=== PATIENT | female | born 2000 | race Caucasian/White ===

== ENCOUNTER 2022-11-01 16:15 | Emergency (ER) | payer SELFPAY ==
[~2022-11-01] VITALS: Ht 175.3 cm; Wt 77.3 kg
[2022-11-01] MEDS ORDERED: ONDANSETRON HCL 4 MG/2 ML VIAL IVP ONE (16:30)
[2022-11-01] MEDS ORDERED: KETOROLAC TROMETHAMINE 30 MG/ML VIAL IVP ONE (16:30)
[2022-11-01 16:43] LABS: BASOPHILS % (AUTO) 0.5 % (0.0-2.0); EOSINOPHILS % (AUTO) 2.6 % (1.0-6.0); HEMATOCRIT 38.7 % (36-46); HEMOGLOBIN 12.9 g/dL (12.0-16.0); LYMPHOCYTES % (AUTO) 24.9 % (22.0-44.0); MEAN CORPUSCULAR HEMOGLOBIN 30.9 pg (26.0-34.0); MEAN CORPUSCULAR HGB CONC 33.3 G/dL (31.0-37.0); MEAN CORPUSCULAR VOLUME 93 fL (80-100); MONOCYTES # (AUTO) 0.6 K/uL (0.1-1.0); MONOCYTES % (AUTO) 7.5 % (2.0-9.0); NEUTROPHILS # (AUTO) 5.1 K/uL (1.8-7.7); NEUTROPHILS % (AUTO) 64.5 % (40.0-70.0); PLATELET COUNT (AUTO) 210 K/uL (150-450); RED BLOOD CELL COUNT(AUTO) 4.16 MIL/uL (4.00-5.20); RED CELL DISTRIBUTION WIDTH 12.2 % (11.5-14.5)
[2022-11-01 16:54] LABS: ANION GAP 8 mmol/L (8-16); CALCIUM, TOTAL 8.9 mg/dL (8.8-10.5); CARBON DIOXIDE 24 mmol/L (22-29); CHLORIDE 107 mmol/L (98-107); CREATININE 0.78 mg/dL (0.60-1.30); GLUCOSE,RANDOM 89 mg/dL (70-110); POTASSIUM 3.6 mmol/L (3.5-5.1); SODIUM SERUM 139 mmol/L (136-145); UREA NITROGEN, BLOOD 10 mg/dL (7-18)
[2022-11-01 16:56] LABS: GLOMERULAR FILTR. RATE CALC > 60 mL/min (>60)
[2022-11-01 17:00] LABS: ALANINE AMINOTRANSFERASE 10 U/L (12-78); ALBUMIN 3.8 g/dL (3.4-5.0); ALKALINE PHOSPHATASE 64 U/L (46-116); ASPARTATE AMINOTRANSFERASE 16 U/L (15-37); BILIRUBIN,TOTAL 0.6 mg/dL (0.1-1.0); LIPASE 118 U/L (73-393); TOTAL PROTEIN, SERUM 6.9 g/dL (6.4-8.2)
[2022-11-01 17:19] LABS: HCG,QUANTITATIVE < 1 mIU/mL (0-6)
[2022-11-01] MEDS ORDERED: IOHEXOL 350 MG/ML 100 ML VIAL ONE (17:24)
[2022-11-01] MEDS ORDERED: SODIUM CHLORIDE 0.9% 100 ML ONE (17:24)
[2022-11-01 17:36] LABS: APPEARANCE,URINE CLEAR (CLEAR); BILIRUBIN,URINE NEGATIVE (NEGATIVE); GLUCOSE, URINE (UA) NEGATIVE (NEGATIVE); LEUKOCYTE ESTERASE ,URINE NEGATIVE (NEGATIVE); NITRATE,URINE NEGATIVE (NEGATIVE); OCCULT BLOOD,URINE LARGE (NEGATIVE); PROTEIN,URINE 30-70 mg/dL (NEGATIVE); SPECIFIC GRAVITIY, URINE 1.028 (1.003-1.030); UROBILINOGEN,URINE <=1.0 mg/dL (<=1.0)
[2022-11-01 17:55] LABS: RBC,URINE 26-50 /HPF (0-2)
[2022-11-01 17:56] LABS: BACTERIA,URINE Rare /HPF (None Seen); SQUAMOUS EPITHELIAL CELL,UR Few /LPF (None Seen)
[2022-11-01] MEDS ORDERED: SODIUM CHLORIDE 0.9% 1,000 ML IV ONE (18:45)
[2022-11-01 19:22] VITALS: BP 108/60
== END 2022-11-01 19:40 | disposition home or self-care (01) ==
LOC: EMS 16:26
DX: N20.0 Calculus of kidney (principal); R10.9 Unspecified abdominal pain
CPT/HCPCS: 99285; 74177; 96374; 96361; 96375; 80053; 81001; 83690; 84702; 85025; 36415; J1885; J2405; Q9967; J7050

== ENCOUNTER 2024-03-12 09:08 | Emergency (ER) | payer OTHER ==
[~2024-03-12] VITALS: Ht 175.3 cm; Wt 68.2 kg
[2024-03-12] MEDS ORDERED: GABA-529 PO (09:12)
[2024-03-12 11:18] VITALS: BP 104/58; PULSE 84; RESP 18; TEMP 98.7
[2024-03-12] MEDS ORDERED: IBUP-1492 PO (11:19)
== END 2024-03-12 11:32 | disposition home or self-care (01) ==
LOC: EMS 09:08
DX: S93.402A Sprain of unspecified ligament of left ankle, initial encounter (principal); F41.9 Anxiety disorder, unspecified; F17.210 Nicotine dependence, cigarettes, uncomplicated; F12.90 Cannabis use, unspecified, uncomplicated; Z88.8 Allergy status to other drugs, medicaments and biological substances; X58.XXXA Exposure to other specified factors, initial encounter; Y93.89 Activity, other specified; Y92.89 Other specified places as the place of occurrence of the external cause; Y99.8 Other external cause status
CPT/HCPCS: 29515; 99283

== ENCOUNTER 2024-03-20 01:11 | Emergency (ER) | payer OTHER ==
[~2024-03-20] VITALS: Ht 175.3 cm; Wt 65.0 kg
[~2024-03-20 01:11] MED LIST: GABA-529 PO; IBUP-1492 PO
[2024-03-20 01:20] VITALS: BP 106/67; PULSE 80; RESP 18; TEMP 98
== END 2024-03-20 03:15 | disposition home or self-care (01) ==
LOC: EMS 01:12
DX: S93.402A Sprain of unspecified ligament of left ankle, initial encounter (principal); F41.9 Anxiety disorder, unspecified; F17.210 Nicotine dependence, cigarettes, uncomplicated; F12.90 Cannabis use, unspecified, uncomplicated; Z88.8 Allergy status to other drugs, medicaments and biological substances; X58.XXXA Exposure to other specified factors, initial encounter; Y93.89 Activity, other specified; Y92.89 Other specified places as the place of occurrence of the external cause; Y99.0 Civilian activity done for income or pay
CPT/HCPCS: 99281; Z7502